=== PATIENT | female | born 1985 | race Caucasian/White ===

== ENCOUNTER 2019-04-11 23:08 | Emergency (ER) | payer OTHER ==
[~2019-04-11] VITALS: Ht 177.8 cm; Wt 100.0 kg
[2019-04-11 23:10] VITALS: BP 121/81; PULSE 100; RESP 16; Ht 177.8 cm; Wt 100.0 kg
[2019-04-12] MEDS ORDERED: ACETAMINOPHEN 325 MG TAB PO STA (00:29)
== END 2019-04-12 05:48 | disposition left against medical advice (07) ==
LOC: FTE 23:08
DX: O26.891 Other specified pregnancy related conditions, first trimester (principal); R10.9 Unspecified abdominal pain; O99.89 Other specified diseases and conditions complicating pregnancy, childbirth and the puerperium; M54.5 Low back pain; Z3A.12 12 weeks gestation of pregnancy
CPT/HCPCS: 76801; Z7502; Z7610